=== PATIENT | female | born 1965 | race Caucasian/White ===

== ENCOUNTER → 2017-05-01 | Outpatient (CLI) | payer OTHER ==
[~2017-05-01] MED LIST: ADIPEX-P37.5 MG PO; ALBUTEROL0.09 MG/A2 IH; AMOXICILLIN500 MG PO; ANUSOL-HC25 MG R; BACTRIM DS 8001 TA1 PO; CIPRODEX 0.3%-7.5 ML OT; CIPROFLOXACIN500 MG PO; CLINDAMYCIN HC300 MG PO; COLACE100 MG PO; EES400 MG PO; FLAGYL500 MG PO; FLEXERIL10 MG PO; Lortab 5/500 501 TAB PO; MOTRIN800 MG PO; NKHM; PREDNICOT20 MG PO; ZITHROMAX Z PA250 MG PO; ZOVIRAX800 MG PO
== END | disposition home or self-care (01) ==
LOC: MAMMO 08:18
DX: Z12.31 Encounter for screening mammogram for malignant neoplasm of breast (principal)

== ENCOUNTER → 2018-10-06 | Outpatient (CLI) | payer OTHER ==
[2018-10-06 09:58] LABS: CHLORIDE 105 mmol/L (98-107); SODIUM 140 mmol/L (136-145)
[2018-10-06 10:26] LABS: ALBUMIN 3.7 gm/dl (3.1-4.5); ALKALINE PHOSPHATASE 95 U/L (45-117); BUN 14 mg/dl (7-24); CREATININE 0.85 mg/dL (0.55-1.02); FREE T4 0.88 ng/dl (0.76-1.46); SGOT/AST 16 IU/L (3-35); SGPT/ALT 19 U/L (12-78); THYROID STIM HORMONE (HS) 0.839 uIU/ml (0.358-4.75); TOTAL PROTEIN 7.7 gm/dL (6.4-8.2)
== END | disposition home or self-care (01) ==
LOC: LAB 08:09
PROVIDERS: Internal Medicine
DX: M25.641 Stiffness of right hand, not elsewhere classified (principal); M79.641 Pain in right hand; I10 Essential (primary) hypertension

== ENCOUNTER → 2020-04-19 | Outpatient (CLI) | payer OTHER ==
[2020-04-19 07:30] LABS: HEMATOCRIT 45.5 % (37.0-47.0); MEAN CELL VOLUME 92.1 fl (81.0-99.0); MEAN CORPUSCULAR HGB 29.8 pg (27.0-31.0); MEAN CORPUSCULAR HGB CONC 32.3 g/dl (33.0-37.0); RED BLOOD COUNT 4.94 10*6/uL (4.10-5.10); RED CELL DISTRI WIDTH 12.4 % (0-14.5); WHITE BLOOD COUNT 6.8 10*3/uL (4.8-10.8)
[2020-04-19 08:00] LABS: ALBUMIN 3.6 gm/dl (3.1-4.5); ALKALINE PHOSPHATASE 106 U/L (45-117); BUN 13 mg/dl (7-24); CHLORIDE 107 mmol/L (98-107); CHOLESTEROL 213 mg/dL (<200); CREATININE 0.72 mg/dL (0.55-1.02); HDL CHOLESTEROL 42 mg/dl (40-60); LDL CHOLESTEROL 144 mg/dL (9-159); POTASSIUM 4.2 mmol/L (3.5-5.1); SGOT/AST 18 IU/L (3-35); SGPT/ALT 24 U/L (12-78); SODIUM 140 mmol/L (136-145); TOTAL PROTEIN 7.7 gm/dL (6.4-8.2); TRIGLYCERIDES 133 mg/dl (<150); VLDL CHOLESTEROL 27 mg/dL (6-40)
== END | disposition home or self-care (01) ==
LOC: LAB 07:06
PROVIDERS: ATTEND Family Medicine
DX: I10 Essential (primary) hypertension (principal); E78.00 Pure hypercholesterolemia, unspecified; F17.200 Nicotine dependence, unspecified, uncomplicated

== ENCOUNTER → 2020-04-22 | Outpatient (CLI) | payer OTHER ==
[2020-04-23 09:06] LABS: RHEUMATOID ARTHRITIS FACTOR <10.0 IU/mL (0.0-13.9)
== END | disposition home or self-care (01) ==
LOC: LAB 07:18
PROVIDERS: ATTEND Family Medicine
DX: M79.10 Myalgia, unspecified site (principal); M25.50 Pain in unspecified joint

== ENCOUNTER → 2020-04-25 | Outpatient (CLI) | payer OTHER | LOC: COVID19 12:15 | PROVIDERS: ATTEND Family Medicine | DX: Z20.828 Contact with and (suspected) exposure to other viral communicable diseases (principal) ==

== ENCOUNTER → 2020-10-17 | Outpatient (CLI) | payer OTHER ==
[2020-10-17 16:05] LABS: BASO # 0.1 10*3/uL (0.0-0.1); BASO % 0.7 % (0.0-1.0); EOS # 0.2 10*3/uL (0.0-0.4); EOS % 2.6 % (1.0-4.0); HEMATOCRIT 41.1 % (37.0-47.0); LYMPH % 28.1 % (27.0-41.0); MEAN CELL VOLUME 91.1 fl (81.0-99.0); MEAN CORPUSCULAR HGB 30.8 pg (27.0-31.0); MEAN CORPUSCULAR HGB CONC 33.8 g/dl (33.0-37.0); MEAN PLATELET VOLUME 9.9 fl (9.6-12.3); MONO # 0.6 10*3/uL (0.1-1.0); MONO % 8.4 % (3.0-9.0); NEUT # 4.2 10*3/uL (2.3-7.9); NEUT % 60.1 % (47.0-73.0); PLATELET COUNT AUTOMATED 327 10*3/uL (130-400); RED BLOOD COUNT 4.51 10*6/uL (4.10-5.10); RED CELL DISTRI WIDTH 12.4 % (0-14.5)
[2020-10-17 16:24] LABS: ALBUMIN 3.3 gm/dl (3.1-4.5); ALKALINE PHOSPHATASE 120 U/L (45-117); BUN 16 mg/dl (7-24); CHLORIDE 105 mmol/L (98-107); CREATININE 0.98 mg/dL (0.55-1.02); POTASSIUM 3.6 mmol/L (3.5-5.1); SGOT/AST 18 IU/L (3-35); SGPT/ALT 24 U/L (12-78); SODIUM 138 mmol/L (136-145); TOTAL PROTEIN 7.7 gm/dL (6.4-8.2)
== END | disposition home or self-care (01) ==
LOC: LAB 15:19
PROVIDERS: Nurse Practitioner Family; ATTEND Pediatrics Pediatric Cardiology
DX: L40.9 Psoriasis, unspecified (principal)

== ENCOUNTER → 2021-06-13 | Outpatient (CLI) | payer OTHER | LOC: RAD 14:43 | PROVIDERS: ATTEND Family Medicine | DX: U07.1 COVID-19 (principal) ==

== ENCOUNTER 2021-11-22 00:59 | Observation (INO) | payer OTHER ==
[~2021-11-22] VITALS: Ht 167.6 cm; Wt 113.2 kg
[2021-11-22 01:06] VITALS: BP 179/85
[2021-11-22] MEDS ORDERED: AMOX-CLAV 500-1 EACH PO (01:09)
[2021-11-22] MEDS ORDERED: FLUOXETINE HYDR20 M1 PO (01:27)
[2021-11-22] MEDS ORDERED: LISINOPRIL40 MG PO (01:28)
[2021-11-22] MEDS ORDERED: HYDROCHLOROTHIA25 M1 PO (01:28)
[2021-11-22] MEDS ORDERED: BETAMETHASONE D15 GM T (01:29)
[2021-11-22 03:11] LABS: BASO % 0.5 % (0.0-1.0); EOS # 0.2 10*3/uL (0.0-0.4); EOS % 2.5 % (1.0-4.0); HEMATOCRIT 41.5 % (37.0-47.0); LYMPH # 2.2 10*3/uL (1.3-4.4); LYMPH % 28.1 % (27.0-41.0); MEAN CORPUSCULAR HGB 30.3 pg (27.0-31.0); MEAN CORPUSCULAR HGB CONC 33.3 g/dl (33.0-37.0); MEAN PLATELET VOLUME 9.6 fl (9.6-12.3); MONO # 0.6 10*3/uL (0.1-1.0); MONO % 7.4 % (3.0-9.0); NEUT # 4.7 10*3/uL (2.3-7.9); NEUT % 61.2 % (47.0-73.0); PLATELET COUNT AUTOMATED 282 10*3/uL (130-400); RED BLOOD COUNT 4.56 10*6/uL (4.10-5.10); RED CELL DISTRI WIDTH 12.8 % (0-14.5); WHITE BLOOD COUNT 7.7 10*3/uL (4.8-10.8)
[2021-11-22 03:26] LABS: ALKALINE PHOSPHATASE 86 U/L (45-117); BUN 21 mg/dl (7-24); CHLORIDE 109 mmol/L (98-107); CREATININE 0.89 mg/dL (0.55-1.02); POTASSIUM 3.9 mmol/L (3.5-5.1); SGOT/AST 15 IU/L (3-35); SGPT/ALT 19 U/L (12-78); SODIUM 139 mmol/L (136-145)
[2021-11-22 07:41] VITALS: BP 135/54
[2021-11-22 07:56] VITALS: BP 129/49
[2021-11-22 12:00] VITALS: BP 113/51; BP 124/50
[2021-11-22 16:00] VITALS: BP 141/50
[2021-11-22 20:00] VITALS: BP 135/60
[2021-11-23] VITALS: BP 141/82
[2021-11-23] MEDS ORDERED: CEFUROXIME AXE250 MG PO (03:40)
[2021-11-23] MEDS ORDERED: CLINDAMYCIN HC300 MG PO (03:40)
== END 2021-11-23 07:01 | disposition home or self-care (01) ==
LOC: ED 00:59 → EDHOLD 06:35 → 5E 07:15
PROVIDERS: Emergency Medicine; ADMIT Internal Medicine; ATTEND Internal Medicine
DX: K04.7 Periapical abscess without sinus (principal); L03.211 Cellulitis of face; I10 Essential (primary) hypertension; F41.9 Anxiety disorder, unspecified; L40.9 Psoriasis, unspecified; Z79.899 Other long term (current) drug therapy

== ENCOUNTER 2023-03-16 15:28 | Emergency (ER) | payer OTHER ==
[~2023-03-16] VITALS: Ht 167.6 cm; Wt 108.9 kg
[~2023-03-16 15:28] MED LIST changes: +AMOX-CLAV 500-1 EACH PO; +BETAMETHASONE D15 GM T; +CEFUROXIME AXE250 MG PO; +FLUOXETINE HYDR20 M1 PO; +HYDROCHLOROTHIA25 M1 PO; +LISINOPRIL40 MG PO
[2023-03-16] MEDS ORDERED: BUPROPION HYDR150 M1 PO (17:15)
== END 2023-03-16 22:15 | disposition home or self-care (01) ==
LOC: ED 15:28
DX: M79.641 Pain in right hand (principal); R60.0 Localized edema; K21.9 Gastro-esophageal reflux disease without esophagitis; J45.909 Unspecified asthma, uncomplicated; I10 Essential (primary) hypertension; Z90.89 Acquired absence of other organs; Z98.890 Other specified postprocedural states

== ENCOUNTER → 2023-04-15 | Outpatient (CLI) | payer OTHER ==
[~2023-04-15] MED LIST changes: +BUPROPION HYDR150 M1 PO
== END | disposition home or self-care (01) ==
LOC: RAD 08:04
PROVIDERS: ATTEND Internal Medicine
DX: Z78.0 Asymptomatic menopausal state (principal); N95.0 Postmenopausal bleeding

== ENCOUNTER 2024-09-24 14:43 | Emergency (ER) | payer OTHER ==
[2024-09-24] MEDS ORDERED: Ketorolac Tromethamine 30 MG/ML VIAL IM ONE (15:05)
[2024-09-24 15:21] LABS: BASO % 0.4 % (0.0-1.0); EOS # 0.2 10*3/uL (0.0-0.4); EOS % 2.2 % (1.0-4.0); HEMATOCRIT 37.6 % (37.0-47.0); MEAN CELL VOLUME 89.1 fl (81.0-99.0); MEAN CORPUSCULAR HGB 29.4 pg (27.0-31.0); MEAN PLATELET VOLUME 9.4 fl (9.6-12.3); MONO # 0.5 10*3/uL (0.1-1.0); MONO % 6.6 % (3.0-9.0); NEUT % 64.7 % (47.0-73.0); PLATELET COUNT AUTOMATED 270 10*3/uL (130-400); RED BLOOD COUNT 4.22 10*6/uL (4.10-5.10); RED CELL DISTRI WIDTH 12.1 % (0-14.5); WHITE BLOOD COUNT 7.7 10*3/uL (4.8-10.8)
[2024-09-24 15:44] LABS: BUN 12 mg/dl (9-23); CHLORIDE 104 mmol/L (98-107); POTASSIUM 3.7 mmol/L (3.4-5.1)
== END 2024-09-24 16:52 | disposition home or self-care (01) ==
LOC: ED 14:43
PROVIDERS: Physician Assistant Medical
DX: S29.011A Strain of muscle and tendon of front wall of thorax, initial encounter (principal); M54.9 Dorsalgia, unspecified; E11.9 Type 2 diabetes mellitus without complications; I10 Essential (primary) hypertension; E78.5 Hyperlipidemia, unspecified; Z79.899 Other long term (current) drug therapy; X50.9XXA Other and unspecified overexertion or strenuous movements or postures, initial encounter; Y93.89 Activity, other specified; Y92.89 Other specified places as the place of occurrence of the external cause; Y99.8 Other external cause status

== ENCOUNTER 2025-02-15 17:41 | Emergency (ER) | payer OTHER ==
[~2025-02-15] VITALS: Ht 167.6 cm; Wt 108.9 kg
[2025-02-15] MEDS ORDERED: diphenhydrAMINE hydrochloride 50 MG/ML VIAL IV ONE (19:20)
[2025-02-15] MEDS ORDERED: Ondansetron Hydrochloride 4 MG/2 ML VIAL IV ONE (19:20)
[2025-02-15] MEDS ORDERED: SODIUM CHLORIDE 0.9% 1,000 ML IV ONE (19:20)
== END 2025-02-15 20:52 | disposition home or self-care (01) ==
LOC: ED 17:41
DX: R51.9 Headache, unspecified (principal); K21.9 Gastro-esophageal reflux disease without esophagitis; J45.909 Unspecified asthma, uncomplicated; I10 Essential (primary) hypertension; Z98.890 Other specified postprocedural states; Z98.51 Tubal ligation status